=== PATIENT | female | born 1970 | race Two or more races ===

== ENCOUNTER → 2016-11-30 | Outpatient (CLI) | payer BC ==
[~2016-11-30] MED LIST: ASPIR-LOW81 MG PO; CELEXA20 MG PO; FLUOXETINE HCL20 MG PO; HYDROCHLOROTHIA25 MG PO; LEVAQUIN750 MG PO; LISINOPRIL10 MG PO; PHENERGAN-CODE120 ML PO; PHENTERMINE H37.5 MG PO; PREDNISONE20 MG PO; RANITIDINE HCL150 M1 PO; SIMVASTATIN40 MG PO; TOPROL XL25 MG PO; VITAMIN D250000 UNIT PO; ZESTRIL,PRINIVI20 MG PO
== END | disposition home or self-care (01) ==
LOC: NUC 06:43
DX: Z51.81 Encounter for therapeutic drug level monitoring (principal); C50.411 Malignant neoplasm of upper-outer quadrant of right female breast; Z79.899 Other long term (current) drug therapy; E83.42 Hypomagnesemia; E55.9 Vitamin D deficiency, unspecified
CPT/HCPCS: 78472; A9512; A9560

== ENCOUNTER → 2017-01-25 | Outpatient (CLI) | payer BC | END | disposition home or self-care (01) | LOC: NUC 13:00 | DX: C50.919 Malignant neoplasm of unspecified site of unspecified female breast (principal); Z51.81 Encounter for therapeutic drug level monitoring; Z79.899 Other long term (current) drug therapy; Z92.21 Personal history of antineoplastic chemotherapy | CPT/HCPCS: 78472; A9560 ==

== ENCOUNTER → 2017-04-19 | Outpatient (CLI) | payer BC | END | disposition home or self-care (01) | LOC: NUC 07:00 | DX: Z92.21 Personal history of antineoplastic chemotherapy (principal); C50.919 Malignant neoplasm of unspecified site of unspecified female breast | CPT/HCPCS: 78472; A9560 ==

== ENCOUNTER → 2017-06-20 | Outpatient (CLI) | payer BC | END | disposition home or self-care (01) | LOC: NUC 08:00 | DX: Z79.899 Other long term (current) drug therapy (principal) | CPT/HCPCS: 78472; A9560 ==

== ENCOUNTER → 2017-08-29 | Outpatient (CLI) | payer BC | END | disposition home or self-care (01) | LOC: NUC 06:57 | DX: Z79.899 Other long term (current) drug therapy (principal); C50.919 Malignant neoplasm of unspecified site of unspecified female breast | CPT/HCPCS: 78472; A9512; A9560 ==

== ENCOUNTER → 2017-11-07 | Outpatient (CLI) | payer BC | END | disposition home or self-care (01) | LOC: NUC 08:29 | DX: Z79.899 Other long term (current) drug therapy (principal); Z92.21 Personal history of antineoplastic chemotherapy; C50.919 Malignant neoplasm of unspecified site of unspecified female breast | CPT/HCPCS: 78472; A9560 ==

== ENCOUNTER → 2018-02-01 | Outpatient (CLI) | payer BC | END | disposition home or self-care (01) | LOC: NUC 01-31 07:00 | DX: Z79.899 Other long term (current) drug therapy (principal); C50.919 Malignant neoplasm of unspecified site of unspecified female breast | CPT/HCPCS: 78472; A9512; A9560; J1644 ==

== ENCOUNTER → 2018-05-01 | Outpatient (CLI) | payer BC | END | disposition home or self-care (01) | LOC: NUC 10:00 | DX: Z79.899 Other long term (current) drug therapy (principal); C50.919 Malignant neoplasm of unspecified site of unspecified female breast | CPT/HCPCS: 78472; A9512; A9560; J1644 ==